=== PATIENT | female | born 1940 | race American Indian/Alaskan Native ===

== ENCOUNTER 2018-05-05 11:07 | Outpatient (CLI) | payer MEDICARE | END 2018-05-05 11:08 | disposition home or self-care (01) | LOC: C.RADIC 11:07 | DX: Z01.810 Encounter for preprocedural cardiovascular examination (principal) ==

== ENCOUNTER 2018-05-28 06:02 | Day surgery (SDC) | payer MEDICARE ==
[2018-05-27 08:27] VITALS: BMI 38.2
== END 2018-05-28 08:40 | disposition home or self-care (01) ==
LOC: C.SDS 06:02 → UNDOADMIN 06:02 → C.9S 06:02 → EDSTATUS 07:45 → C.SDS 08:40
PROVIDERS: ATTEND Obstetrics & Gynecology Reproductive Endocrinology
DX: D25.9 Leiomyoma of uterus, unspecified (principal); Z53.8 Procedure and treatment not carried out for other reasons
CPT/HCPCS: 58150; 82948; P000X

== ENCOUNTER 2018-06-25 05:49 | Inpatient (IN) | payer MEDICARE ==
[2018-06-25 06:59] VITALS: BMI 36.6
[2018-06-25] MEDS ORDERED: Gentamicin 80 mg in 0.9% NS 80 MG/100 ML BAG IVPB ONE (08:01)
[2018-06-25] MEDS ORDERED: Propofol 10 mg/ml Inj (20 ML) ONE (08:01)
[2018-06-25] MEDS ORDERED: Clindamycin 600mg/50ml NS 600 MG/50 ML BAG IVPB ONE (08:01)
[2018-06-25] MEDS ORDERED: Midazolam 2 MG/2 ML VIAL ONE (08:01)
[2018-06-25] MEDS ORDERED: Succinylcholine Chloride 20 mg/ml Syr (5 ml) IV ONE (08:03)
[2018-06-25] MEDS ORDERED: Rocuronium 10 mg/ml (5 ml) ONE ×2 (08:03→09:43)
[2018-06-25] MEDS ORDERED: Phenylephrine 10 mg/ml Inj ONE (08:35)
[2018-06-25] MEDS ORDERED: Methylene Blue 10 mg/mL(10ml) IV ONE (09:21)
[2018-06-25] MEDS ORDERED: Neostigmine 1:1000 (1 mg/ml) Inj ONE (10:02)
[2018-06-25] MEDS: HYDROmorphone 0.5 mg/0.5 ml ISec IVP PRN ×3 (11:00→12:00)
[2018-06-25] MEDS ORDERED: Naloxone 0.4 mg/ml Inj (Adult) IVP PRN (11:48)
[2018-06-25] MEDS: (Novolin R) Insulin Human Regular 100 units/ml vial SC SCH ×3 (11:50→22:05)
[2018-06-25] MEDS: Lactated Ringer's 1,000 ML IV SCH ×2 (13:00→22:55)
[2018-06-25] MEDS: Gentamicin 80 mg in 0.9% NS 80 MG/100 ML BAG IVPB SCH ×2 (15:51→23:39)
[2018-06-25] MEDS ORDERED: Clindamycin 600mg/50ml D5W 600 MG/50 ML VIAL IVPB SCH (16:00)
[2018-06-25] MEDS: Clindamycin 600mg/50ml NS 600 MG/50 ML BAG IVPB SCH (17:10)
[2018-06-25] MEDS ORDERED: Acetaminophen-Codeine 300/30 mg Tab PO ONE (17:32)
[2018-06-25] MEDS: Acetaminophen-Codeine 300/30 mg Tab PO PRN (17:54)
--- NOTE | 2018-06-25 20:40 | OP ---
PROCEDURE DATE: 06/25/2018 PREOPERATIVE DIAGNOSES: Uterine prolapse, fibroid uterus. POSTOPERATIVE DIAGNOSES: Uterine prolapse, fibroid uterus. PROCEDURES: Total abdominal hysterectomy, bilateral salpingo-oophorectomy and cystoscopy. FINDINGS: Third degree uterine prolapse, access through the vagina was extremely limited and with limited mobility on the uterus because of the fibroid, the decision was made to perform an abdominal hysterectomy instead. Also the patient has about an 16-week size multi-fibroid uterus, normal ovaries, and normal tubes. SURGEON: Janee Wasserman MD HERD TESTER: Max Madrid MD ESTIMATED BLOOD LOSS: 150 mL. DESCRIPTION OF PROCEDURE: After the risks, benefits, and alternatives of the planned procedures including, but not limited to infection, hemorrhage, deep vein thrombosis, atelectasis, pneumonia, pulmonary embolism, damage to the bladder, damage to the ureter, renal insufficiency, renal failure, wound infection, wound dehiscence, incisional hernia, keloid formation, damage to the large and small intestine, damage to the inferior vena cava and the aorta requiring extensive repair, anesthesia complications, electrolyte imbalance, possibility of , fluid overload, cerebral edema, embolism, and other complications that were discussed, but are not listed above, have been explained to the patient and all her questions answered, informed consent was obtained. The patient was taken to the operating room in a stable condition. Under a suitable level of general anesthesia, she was prepped and draped in a sterile fashion after having been placed in a supine position. The abdomen was entered through a Pfannenstiel-type incision, carried through the subcutaneous tissues to the fascia. Fascia was opened transversely and dissected off the rectus abdominis musculature. Rectus abdominis musculature was then in the midline to remove the parietal peritoneum, which was entered sharply and incised superiorly and inferiorly. An O'Gopal-O'Pride retractor was inserted into the abdomen and bowel was packed away from the pelvic cavity. The right and left round ligaments were then clamped, cut, and ligated using #0 Vicryl suture. The anterior lip of the broad ligament was opened on the midline on the right and left side and joined in the midline. The bladder was then dissected off the lower uterine segment. The pelvis was extremely with difficult access to the cervix. A hole was made in the broad ligament on the right and left side and the right and left infundibulopelvic ligaments were doubly clamped, cut and doubly ligated using #0 Vicryl suture. The right and left uterine vessels were doubly clamped, cut and doubly ligated using #0 Vicryl sutures. Right and left cardinal ligaments were then clamped, cut and ligated using #0 Vicryl suture. The right and left uterosacral ligaments were clamped, cut and ligated using #0 Vicryl suture. The vagina was then incised in a circumferential fashion and the uterine specimen and cervix were removed and submitted for pathology. The right and left vaginal cuff angles were then closed using a suspension suture to include the ipsilateral cardinal and uterosacral ligaments for vaginal vault suspension. The pelvic peritoneum was then reapproximated over the vaginal cuff. Peritoneal cavity was then irrigated using copious amounts of saline. The saline was evacuated. The abdomen was then closed in layers with 0 chromic to the parietal peritoneum. Recti muscles were reapproximated using interrupted sutures of 0 chromic. Fascia was reapproximated using 2 separate running sutures of 0 Vicryl to meet in the midline. Subcutaneous tissues were reapproximated using interrupted sutures of 0 plain and the initial skin incision was reapproximated using 4-0 Vicryl in a subcuticular fashion. Estimated blood loss of the procedure was 150 mL. The patient was then placed in a dorsal lithotomy position and she had been given IV methylene blue. Cystoscopy was performed. The urethra and bladder neck were normal. The interior of the bladder was normal. Both ureteric orifices were visualized and noted to be patent with blue dye coming out . At the end of the procedure, a Coulter catheter was inserted. The patient was then transferred to the recovery room in a stable position. Pad and instruments counts were correct x2. There were no complications. Janee Wasserman MD
[2018-06-26] MEDS: Clindamycin 600mg/50ml NS 600 MG/50 ML BAG IVPB SCH ×2 (00:58→07:49)
[2018-06-26] MEDS: Enoxaparin 40 mg Syringe SC SCH (05:35)
[2018-06-26] MEDS ORDERED: Oxycodone/Acetaminophen 5/325 mg Tab PO PRN (07:17)
[2018-06-26] MEDS: (Novolin R) Insulin Human Regular 100 units/ml vial SC SCH ×4 (07:47→22:07)
[2018-06-26] MEDS: Gentamicin 80 mg in 0.9% NS 80 MG/100 ML BAG IVPB SCH (07:50)
[2018-06-26 09:10] LABS: BASO % 0.5 % (0.0-2.0); EOS % 0.1 % (0.0-4.0); HEMOGLOBIN 11.3 g/dL (11.0-16.0); LYMPH # 1.6 K/uL (1.0-4.3); LYMPH % 16.7 % (20.0-40.0); MEAN CORPUSCULAR HEMOGLOBIN 28.1 pg (27.0-31.0); MEAN CORPUSCULAR HGB CONC 32.3 g/dL (33.0-37.0); MEAN PLATELET VOLUME 8.8 fL (7.2-11.7); MONO # 0.7 K/uL (0.0-0.8); MONO % 7.4 % (0.0-10.0); NEUT # 7.2 K/uL (1.8-7.0); NEUT % 75.3 % (50.0-75.0); RBC 4.01 Mil/uL (3.80-5.20); RED CELL DISTRIBUTION WIDTH 14.4 % (11.5-14.5); WHITE BLOOD COUNT 9.6 K/uL (4.8-10.8)
[2018-06-26 09:16] LABS: MEAN CELL VOLUME 86.8 fL (81.0-99.0)
[2018-06-26] MEDS: Simethicone 80 mg Chewtab PO PRN (09:49)
--- NOTE | 2018-06-26 17:33 | CP.PCM.PCO ---
Physician Communication Note - Physician Communication Note Physician Communication Note: see above
[2018-06-26] MEDS: Acetaminophen-Codeine 300/30 mg Tab PO PRN (21:33)
--- NOTE | 2018-06-26 23:34 | PN ---
DATE: 06/26/2018 SUBJECTIVE: The patient has no complaints. She has minimal incisional pain. She is ambulating. Alert and oriented. OBJECTIVE: VITAL SIGNS: Stable. She is afebrile. ABDOMEN: Soft. Bowel sounds are present. EXTREMITIES: Nontender with no evidence of DVT. CHEST: Clear. CARDIAC: Reveals normal heart sounds without any murmurs. LUNGS: Clear. ASSESSMENT: The patient is status post total abdominal hysterectomy with bilateral salpingo-oophorectomy. PLAN: Ambulate the patient and advance diet as tolerated. Janee Wasserman MD
[2018-06-27] MEDS: Enoxaparin 40 mg Syringe SC SCH (05:57)
[2018-06-27] MEDS: Acetaminophen-Codeine 300/30 mg Tab PO PRN ×2 (06:11→14:42)
[2018-06-27] MEDS: (Novolin R) Insulin Human Regular 100 units/ml vial SC SCH ×4 (08:14→22:12)
--- NOTE | 2018-06-27 14:56 | PN ---
DATE: 06/27/2018 SUBJECTIVE: The patient had bowel movement. She has no complaint. OBJECTIVE: VITAL SIGNS: Stable. She is afebrile. ABDOMEN: Soft. Incision is clean and intact. EXTREMITIES: Nontender. No evidence of DVT. CHEST: Clear. CARDIAC: Reveals normal heart sounds without any murmurs. LUNGS: Clear. ASSESSMENT: The patient is status post total abdominal hysterectomy with bilateral salpingo-oophorectomy and cystoscopy, is stable. PLAN: The patient is requesting to stay an extra night because she will only have help at home tomorrow. The patient will be discharged therefore tomorrow morning on Cleocin 300 mg three times daily x7 days and Tylenol No. 3 one tablet every 4 hours p.r.n. for a total of 20 tablets. To be followed up in the office in one week. Janee Wasserman MD
[2018-06-27] MEDS: Simethicone 80 mg Chewtab PO PRN (16:59)
[2018-06-28 01:38] VITALS: BP 104/66; PULSE 91; RESP 20; TEMP 98.8; O2SAT 99
[2018-06-28] MEDS: Enoxaparin 40 mg Syringe SC SCH (06:02)
[2018-06-28] MEDS: (Novolin R) Insulin Human Regular 100 units/ml vial SC SCH (07:30)
[2018-06-28] MEDS: Simethicone 80 mg Chewtab PO PRN (09:12)
--- NOTE | 2018-06-28 09:56 | CP.PCM.DIS ---
Provider - Provider Date of Admission: 06/25/18 05:49 Attending physician: Janee Wasserman MD Time Spent in preparation of Discharge (in minutes): 20 Hospital Course - Lab Results Lab Results: Most Recent Lab Values WBC 9.6 K/uL (4.8-10.8) 06/26/18 09:05 RBC 4.01 Mil/uL (3.80-5.20) 06/26/18 09:05 Hgb 11.3 g/dL (11.0-16.0) 06/26/18 09:05 Hct 34.8 % (34.0-47.0) 06/26/18 09:05 MCV 86.8 fL (81.0-99.0) D 06/26/18 09:05 MCH 28.1 pg (27.0-31.0) 06/26/18 09:05 MCHC 32.3 g/dL (33.0-37.0) L 06/26/18 09:05 RDW 14.4 % (11.5-14.5) 06/26/18 09:05 Plt Count 226 K/uL (130-400) 06/26/18 09:05 MPV 8.8 fL (7.2-11.7) 06/26/18 09:05 Neut % (Auto) 75.3 % (50.0-75.0) H 06/26/18 09:05 Lymph % (Auto) 16.7 % (20.0-40.0) L 06/26/18 09:05 [place] % (Auto) 7.4 % (0.0-10.0) 06/26/18 09:05 Eos % (Auto) 0.1 % (0.0-4.0) 06/26/18 09:05 Baso % (Auto) 0.5 % (0.0-2.0) 06/26/18 09:05 Neut # (Auto) 7.2 K/uL (1.8-7.0) H 06/26/18 09:05 Lymph # (Auto) 1.6 K/uL (1.0-4.3) 06/26/18 09:05 [place] # (Auto) 0.7 K/uL (0.0-0.8) 06/26/18 09:05 Eos # (Auto) 0.0 K/uL (0.0-0.7) 06/26/18 09:05 Baso # (Auto) 0.0 K/uL (0.0-0.2) 06/26/18 09:05 POC Glucose (mg/dL) 262 mg/dL (65-110) H 06/28/18 07:18 Blood Type B POSITIVE 06/25/18 07:16 Antibody Screen Positive 06/25/18 07:16 Antibody Identification Anti K 06/25/18 07:16 - Hospital Course Hospital Course: PT S/P DEBORAH & BSO. IN HOUSE 2 DAYS. TODAY POST OP DAY#2. AMBULATING, TOLERATING PO DIET. VSS: AFEBRILE READY TO BE DISCHARGE Discharge Exam - Head Exam Head Exam: ATRAUMATIC - Eye Exam Eye Exam: Normal appearance Pupil Exam: NORMAL ACCOMODATION - Rectal Exam Rectal Exam: NORMAL INSPECTION - Exam External exam: NORMAL EXTERNAL EXAM (incision: c/d/i). absent: Ecchymosis, Erythema, Lacerations, Lesions, Swelling Speculum exam: absent: Cervical Discharge, Erythema, Foreign Body, Laceration, NORMAL SPECULUM EXAM, Tissue, Vaginal Bleeding, Vaginal Discharge Discharge Plan - Follow Up Plan Condition: GOOD Disposition: HOME/ ROUTINE Instructions: Hysterectomy (DC), Cystoscopy (DC)
== END 2018-06-28 13:15 | disposition home or self-care (01) | DRG 743 ==
LOC: C.9S 05:49 → C.4M 10:40
PROVIDERS: ADMIT Obstetrics & Gynecology Reproductive Endocrinology; ATTEND Obstetrics & Gynecology Reproductive Endocrinology
PROC: 0UT20ZZ Resection of Bilateral Ovaries, Open Approach (ICD-10-PCS; 2018-06-25)
PROC: 0UT70ZZ Resection of Bilateral Fallopian Tubes, Open Approach (ICD-10-PCS; 2018-06-25)
PROC: 0TJB8ZZ Inspection of Bladder, Via Natural or Artificial Opening Endoscopic (ICD-10-PCS; 2018-06-25)
PROC: 0UT90ZZ Resection of Uterus, Open Approach (ICD-10-PCS; principal; 2018-06-25 07:30)
DX: D25.9 Leiomyoma of uterus, unspecified (principal); N81.3 Complete uterovaginal prolapse; N84.0 Polyp of corpus uteri; N85.8 Other specified noninflammatory disorders of uterus; E11.9 Type 2 diabetes mellitus without complications; I10 Essential (primary) hypertension